=== PATIENT | female | born 1995 | race Caucasian/White ===

== ENCOUNTER 2024-06-08 20:29 | Emergency (ER) | payer SELFPAY ==
[2024-06-08] MEDS ORDERED: Amoxicillin/Potassium Clav 875 MG TAB ONE (20:53)
[2024-06-08] MEDS ORDERED: Ondansetron ODT 4 MG TAB ONE (20:53)
[2024-06-08] MEDS ORDERED: Acetaminophen 500 MG TAB ONE (20:54)
== END 2024-06-08 21:10 | disposition home or self-care (01) ==
LOC: CSHERS 20:29
DX: H66.92 Otitis media, unspecified, left ear (principal); R50.9 Fever, unspecified; R11.0 Nausea
CPT/HCPCS: 99283; Q0162

== ENCOUNTER 2024-06-09 11:35 | Emergency (ER) | payer SELFPAY ==
[2024-06-09] MEDS ORDERED: Acetaminophen 500 MG TAB ONE (12:51)
[2024-06-09] MEDS ORDERED: Ondansetron ODT 4 MG TAB ONE (12:51)
[2024-06-09 14:24] LABS: Influenza A by NAA Not Detected (NotDetected); Influenza B by NAA Not Detected (NotDetected); SARS-CoV-2 NAA Rapid Test Not Detected (NotDetected)
[2024-06-09] MEDS ORDERED: Ketorolac Tromethamine 30 MG (1 mL) VIAL ONE (14:36)
== END 2024-06-09 14:49 | disposition home or self-care (01) ==
LOC: CSHERS 11:35
DX: R50.9 Fever, unspecified (principal); R11.0 Nausea; M79.10 Myalgia, unspecified site; F17.290 Nicotine dependence, other tobacco product, uncomplicated
CPT/HCPCS: 71045; 96372; J1885; Q0162

== ENCOUNTER 2024-10-28 23:28 | Emergency (ER) | payer OTHER, SELFPAY ==
[2024-10-29 00:38] LABS: Bilirubin Neg (Negative); Blood, Urine Negative (Negative); Glucose, Urine (Dipstick) Normal (Negative); Ketone, Urine Negative (Negative); Leukocyte 100 (Negative); Nitrite Negative (Negative); Protein, Urine (Dipstick) Negative (Neg-Trace); Specific Gravity, Urine 1.015 (1.005-1.030); Urobilinogen Normal mg/dL (Less than 2); pH, Urine 6.5 (5.0-9.0)
[2024-10-29 00:59] LABS: Clarity Hazy (Clear)
[2024-10-29 01:01] LABS: CAUTI Indications for Culture Pregnancy; RBC/HPF 0-3 HPF (0-3)
[2024-10-29 01:02] LABS: Bacteria/HPF 1+ HPF (None Seen); Trichomonas/HPF 1+ HPF (None Seen)
[2024-10-29 01:03] LABS: Urine Culture Reflex Yes Yes
== END 2024-10-29 01:11 | disposition home or self-care (01) ==
LOC: CSHERS 23:28
DX: O26.891 Other specified pregnancy related conditions, first trimester (principal); O98.311 Other infections with a predominantly sexual mode of transmission complicating pregnancy, first trimester; O99.331 Smoking (tobacco) complicating pregnancy, first trimester; A59.01 Trichomonal vulvovaginitis; Z3A.12 12 weeks gestation of pregnancy
CPT/HCPCS: 76856; 81001; 87086

== ENCOUNTER 2024-11-08 16:23 | Emergency (ER) | payer OTHER ==
[2024-11-08 18:50] LABS: Bilirubin Neg (Negative); Blood, Urine Negative (Negative); Clarity Clear (Clear); Glucose, Urine (Dipstick) Normal (Negative); Ketone, Urine Negative (Negative); Leukocyte 25 (Negative); Nitrite Negative (Negative); Protein, Urine (Dipstick) Negative (Neg-Trace); Urobilinogen Normal mg/dL (Less than 2)
[2024-11-08 19:00] LABS: Bacteria/HPF 1+ HPF (None Seen); CAUTI Indications for Culture Pelvic or flank pain; RBC/HPF None Seen HPF (0-3); Squamous Epithelial 0-3 HPF (0-3); Urine Culture Reflex No No; WBC/HPF 0-3 HPF (0-3)
[2024-11-08 19:28] LABS: #Basophils 0.05 10x3/uL (0.0-0.2); #Eosinophils 0.08 10x3/uL (0.0-0.5); #Monocytes 0.62 10x3/uL (0.0-1.1); #Neutrophils 7.52 10x3/uL (1.5-8.4); %Basophils 0.5 % (0.0-2.0); %Eosinophils 0.7 % (0.0-6.0); %Monocytes 5.7 % (0.0-10.0); %Neutrophils 69.7 % (40.0-75.0); Hematocrit 33.9 % (34.9-44.5); Hemoglobin 11.3 g/dL (12.0-15.5); Mean Corpuscular HGB CONC 33.3 g/dL (32.0-36.0); Mean Corpuscular Hemoglobin 30.5 pg (27.0-33.0); Mean Corpuscular Volume 91.6 fL (81.6-98.3); Mean Platelet Volume 10.5 fL (7.4-10.4); Platelet Count 253 10x3/uL (150-450); RBC Distribution Width 12.5 % (11.5-14.5); White Blood Cell (WBC) Count 10.8 10x3/uL (3.5-10.5)
[2024-11-08 19:42] LABS: ALT (SGPT) 9 U/L (8-55); AST (SGOT) 11 U/L (5-34); Albumin 3.2 g/dL (3.5-5.0); Alkaline Phosphatase 34 U/L (40-110); Anion Gap 11 mmol/L (10-20); BUN (Urea Nitrogen) 7 mg/dL (7.0-18.7); Bilirubin, Total 0.2 mg/dL (0.2-1.2); Calc. Creatinine Clearance 0 mL/min (70-130); Calcium 8.6 mg/dL (7.8-10.44); Carbon Dioxide 22 mmol/L (22-29); Chloride 107 mmol/L (98-107); Estimated GFR 127; Globulin 2.8 g/dL (2.4-3.5); Glucose 71 mg/dL (70-105); Potassium 3.7 mmol/L (3.5-5.1); Sodium 136 mmol/L (136-145)
== END 2024-11-08 20:17 | disposition home or self-care (01) ==
LOC: CSHERS 16:23
DX: I95.1 Orthostatic hypotension (principal); N39.0 Urinary tract infection, site not specified; F17.290 Nicotine dependence, other tobacco product, uncomplicated
CPT/HCPCS: 80053; 81001; 85025; 93005; 93010; 96360

== ENCOUNTER 2024-11-30 20:37 | Emergency (ER) | payer BC, OTHER, SELFPAY ==
[2024-11-30 21:40] LABS: Bilirubin Neg (Negative); Blood, Urine Negative (Negative); Glucose, Urine (Dipstick) Normal (Negative); Ketone, Urine 5 mg/dL (Negative); Leukocyte 25 (Negative); Nitrite Negative (Negative); Protein, Urine (Dipstick) 15 mg/dl (Neg-Trace); Specific Gravity, Urine 1.025 (1.005-1.030)
[2024-11-30 22:09] LABS: Clarity Hazy (Clear)
[2024-11-30 22:11] LABS: Bacteria/HPF 2+ HPF (None Seen); CAUTI Indications for Culture Pregnancy; RBC/HPF 0-3 HPF (0-3)
[2024-11-30 22:12] LABS: Mucous/LPF 3+ LPF (<2+)
[2024-11-30 22:14] LABS: Urine Culture Reflex Yes Yes
== END 2024-11-30 22:45 | disposition home or self-care (01) ==
LOC: CSHERS 20:37
DX: O99.891 Other specified diseases and conditions complicating pregnancy (principal); R10.2 Pelvic and perineal pain; O99.332 Smoking (tobacco) complicating pregnancy, second trimester; F17.290 Nicotine dependence, other tobacco product, uncomplicated; Z3A.16 16 weeks gestation of pregnancy
CPT/HCPCS: 81001; 87086; 99284

== ENCOUNTER 2024-12-20 01:14 | Emergency (ER) | payer BC ==
[2024-12-20 01:54] LABS: #Basophils 0.05 10x3/uL (0.0-0.2); #Eosinophils 0.07 10x3/uL (0.0-0.5); #Monocytes 1.29 10x3/uL (0.0-1.1); #Neutrophils 10.36 10x3/uL (1.5-8.4); %Basophils 0.3 % (0.0-2.0); %Eosinophils 0.5 % (0.0-6.0); %Monocytes 8.7 % (0.0-10.0); %Neutrophils 69.6 % (40.0-75.0); Hematocrit 33.7 % (34.9-44.5); Hemoglobin 11.8 g/dL (12.0-15.5); Mean Corpuscular Hemoglobin 30.9 pg (27.0-33.0); Mean Corpuscular Volume 88.2 fL (81.6-98.3); Mean Platelet Volume 10.3 fL (7.4-10.4); Platelet Count 401 10x3/uL (150-450); RBC Distribution Width 12.1 % (11.5-14.5); Red Blood Cell (RBC) Count 3.82 10x6/uL (3.90-5.03); White Blood Cell (WBC) Count 14.88 10x3/uL (3.5-10.5)
[2024-12-20 02:10] LABS: Bilirubin Neg (Negative); Blood, Urine 250 (Negative); Clarity Slightly Cloudy (Clear); Glucose, Urine (Dipstick) Normal (Negative); Ketone, Urine Negative (Negative); Leukocyte 100 (Negative); Nitrite Negative (Negative); Protein, Urine (Dipstick) 30 mg/dl (Neg-Trace); Specific Gravity, Urine 1.015 (1.005-1.030)
[2024-12-20 02:13] LABS: ALT (SGPT) 13 U/L (Less than 34); AST (SGOT) 12 U/L (11-34); Albumin 3.2 g/dL (3.1-4.5); Alkaline Phosphatase 67 U/L (40-110); Anion Gap 14 mmol/L (10-20); BUN (Urea Nitrogen) 4 mg/dL (7.0-18.7); Bilirubin, Total 0.4 mg/dL (0.3-1.2); Calc. Creatinine Clearance 0 mL/min (70-130); Calcium 9.9 mg/dL (7.8-10.44); Carbon Dioxide 22 mmol/L (22-29); Chloride 103 mmol/L (98-107); Estimated GFR 130; Globulin 4.1 g/dL (2.4-3.5); Glucose 88 mg/dL (70-105); Potassium 3.4 mmol/L (3.5-5.1); Protein, Total 7.3 g/dL (6.0-8.3); Sodium 136 mmol/L (136-145)
[2024-12-20 02:28] LABS: CAUTI Indications for Culture Pelvic or flank pain; RBC/HPF 21-50 HPF (0-3); Squamous Epithelial 0-3 HPF (0-3)
[2024-12-20 02:29] LABS: Bacteria/HPF 2+ HPF (None Seen); Mucous/LPF 1+ LPF (<2+)
[2024-12-20 02:31] LABS: Urine Culture Reflex No No
== END 2024-12-20 03:48 | disposition home or self-care (01) ==
LOC: CSHERS 01:14
DX: O20.9 Hemorrhage in early pregnancy, unspecified (principal); Z3A.19 19 weeks gestation of pregnancy
CPT/HCPCS: 36415; 76815; 80053; 81001; 85025; 86850; 86900; 86901; 87086; 99284